=== PATIENT | female | born 1970 | race Two or more races ===

== ENCOUNTER 2024-11-22 07:31 | Outpatient (AMB) | payer OTHER, SELFPAY ==
--- OUTSIDE RECORDS SUMMARY | 2024-11-22 07:33 | XMS_ITS | Clinical Summary ---
Author Organization [employer] [facility] Address [address] [place] [address] 7[address] [place] [address] Care Team Providers Care Air Technician Name Role Phone Unavailable Primary Care Provider Unavailabl e Allergies No known active allergies Medications ibuprofen 600 MG tablet Take 1 tablet (600 mg) by mouth every 6 (six) hours if needed for mild pain for up to 20 doses. 20 tablet Active Additional Information Patient not taking.Reported on 08/17/2024 Active Problems Problem Noted Date Diagnosed Date Gingival bleeding 05/15/2024 Dental calculus 05/15/2024 Normal oral exam 04/23/2024 Severe dental caries 03/01/2024 Fractured dental restorationism with loss of materi al 03/01/2024 Necrosis of dental pulp 03/01/2024 Fracture of enamel and dentin with involvement o f pulp 03/01/2024 Immunizations Immunization Administration Dates Next Due Pfizer Covid-19 Vaccine 12+ 10/03/2023 Social History Tobacco Use Types Packs/Day Years Used Date Smoking Tobacco: Never Smokeless Tobacco: Never Tobacco Cessation:Counseling Given: Not Answered Alcohol Use Standard Drinks/Week Comments Never 0 (1 standard drink = 0.6 oz pur e alcohol) Comments Unknown Sex and Gender Information Value Date Recorded Sex Assigned at Unknown 10/03/2023 9:27 AM EDT Legal Sex Female 9:24 AM EDT Gender Identity Female 10/03/2023 9:27 AM EDT Sexual Orientation Don't know 10/03/2023 9: 27 AM EDT Last Filed Vital Signs Vital Sign Reading Time Taken Comments Blood Pressure 128/98 08/17/2024 10:01 AM EDT Pulse 52 08/17/2024 10:01 AM EDT Temperature - - Respiratory Rate - - Oxygen Saturation - - Inhaled Oxygen Concentration - - Weight - - Height - - Body Mass Index - - Plan of Treatment Upcoming Encounters Date Type Department Care Team (Late st Contact Info) Description 11/27/2024 8:00 AM EDT Office Visit [facility] ADULT D[facility] [address] [place] [address] Ambreen Magallanes [address] [place] [address] Health Maintenance Due Date Last Done Comments CT Colonography 1970 Colonoscopy 1970 Colorectal Cancer Screening 1970 Depression Screening 1970 FIT DNA/Cologuard 1970 FIT 1970 FOBT 1970 HIV Screening 1970 Lipid Panel 1970 SDOH Screening 1970 Sigmoidoscopy 1970 Disability Screening 1970 Alcohol/Substance Use Screening 1982 Hepatitis C Screening 02/28/1988 Pap Smear 1991 Cervical Cancer Screening 02/28/2000 HPV/Cotest 02/28/2000 Mammogram 2010 Pneumococcal Vaccine: 50+ Years (1 of 1 - PCV) 02/28/2020 Zoster Vaccines (1 of 2) 02/28/2020 Hepatitis B Vaccines (2 of 2 - CpG 2-dose series) 10/20/2023 09/22/2023 COVID-19 Vaccine (2 - 2023-2 5 season) 2024 10/03/2023 Dental Oral Exam 09/19/2024 03/21/2024 Dental Prophylaxis 11/13/2024 05/15/2024 Influenza Vaccine (#1) 2025 Dental X-Ray: Bitewings 03/22/2025 03/21/20 24, 03/01/2024 Tobacco Screening 08/17/2025 08/17/2024 Dental X-Ray: Full Mouth 03/22/2027 03/21/2024 DTaP/Tdap/Td Vaccines (2 - T d or Tdap) 09/21/2033 09/22/2023 RSV Patients and Patients Aged 60 years or older (1 - 1-dose 75+ series) 2045 HIB Vaccines Aged Out No longer eligi ble based on patient's age to complete this topic HPV Vaccines Aged Out No longer eligi ble based on patient's age to complete this topic Hepatitis A Vaccines Aged Out No long er eligible based on patient's age to complete this topic IPV Vaccines Aged Out No longer eligi ble based on patient's age to complete this topic Meningococcal B Vaccine Aged Out No l onger eligible based on patient's age to complete this topic Meningococcal Vaccine Aged Out No micaela mirian eligible based on patient's age to complete this topic RSV under 20 months Aged Out No longe r eligible based on patient's age to complete this topic Rotavirus Vaccines Aged Out No longer eligible based on patient's age to complete this topic Procedures Procedure Name Priority Date/Time Associated Diagnosis Comments PROPHYLAXIS - ADULT Routine 05/15/2024 8 :00 AM EST Gingival bleeding Dental calculus INTRAORAL - COMPLETE SERIES OF RADIOGRAPHIC IMAGES Routine 03/21/2024 8:00 AM EST Dental caries Encounter for dental examination COMPREHENSIVE ORAL EVALUATION - NEW OR ESTABLISHED PATIENT Routine 03/21/2024 8:00 AM EST Dental caries Encounter for dental examination from Last 3 Months or Most Recently Relevant to Health Maintenance [place] [address] [place] [address] LIMITED N FULL N FULL DENTAL - HSN PARTIAL (MEDICAID)
[2024-11-22 07:37] VITALS: BP 136/90; BMI 38.0
--- NOTE | 2024-11-22 07:37 | MHC.PC.OV ---
Vital Signs 11/22/24 07:37 Height 5 ft 2 in Weight 208 lb BMI 38.0 BP 136/90 H Blood Pressure Location Lt brachial Position Sitting Intake Visit Reasons: establish care Web Marketing Specialist Required: No Accompanied by: Self / Same As Patient Allergies No Known Allergies Allergy (Verified 11/22/24 07:47) Medication List - Last Reconciled 11/22/24 by Bernice Modi MD atenolol 50 mg PO DAILY Tobacco use date assessed: 11/22/24 Dental Screening Dental Screen Date: 11/22/24 Did you have a dental visit in the last 12 months?: Yes Did you have a dental problem in the last 6 months where you did not have access to dental care?: No Was dental information given to patient?: Patient has dentist HPI HPI Comments History of Present Illness Details The patient is a 54-year-old female presenting for a wellness visit and management of hypertension. The patient has a history of hypertension, for which she is currently taking atenolol 50 mg once daily, typically at night. She was advised to consider taking the medication in the morning for better efficacy. The patient underwent a hysterectomy due to menorrhagia, which was characterized by excessive bleeding. This procedure negates the need for routine Papanicolaou tests. Preventative care measures discussed include scheduling a mammography, as it has been over a year since her last screening. Additionally, a stool test for colon cancer screening was recommended, with instructions provided for home collection and mailing. [facility] Surgical History (Updated 11/22/24 @ 07:54 by Bernice Modi MD) S/P total abdominal hysterectomy History of tooth extraction Family History Mother No problems noted. Father No problems noted. Social History Housing: Apartment Alcohol intake: current Alcohol intake frequency: holidays/special occasions only Alcohol type: wine and other Patient Tobacco Use Status: Never used Tobacco e-Cigarette/Vaping Use: Never Used Second Hand Smoke Exposure: No service: No Current occupational status: employed Current occupational exposures/hazards: No Cognitive needs: No Hearing needs: No Vision needs: No Questionnaire PHQ-9 Over the last 2 weeks, how often have you been bothered by any of the following problems? 1. Little interest or pleasure in doing things: several days 2. Feeling down, depressed, or hopeless: not at all 3. Trouble falling or staying asleep, or sleeping too much: not at all 4. Feeling tired or having little energy: not at all 5. Poor appetite or overeating: not at all 6. Feeling bad about yourself - or that you are a failure or have let yourself or your family down: not at all 7. Trouble concentrating on things, such as reading the newspaper or watching television: not at all 8. Moving or speaking so slowly that other people could have noticed. Or the opposite - being so fidgety or restless that you have been moving around a lot more than usual: not at all 9. Thoughts that you would be better off or of hurting yourself in some way: not at all Total score: 1 Depression Screening Interpretation: Negative Depression Screening Done: Yes 38139 - PHQ-9 Billing: Yes Source: Developed by Drs. Roly Dillard, Lisa Isaac, Shashi Cr and colleagues, with an educational nohemi from [employer]. Thrive Questionnaire Date Thrive assessed: 11/22/24 I am a: Patient What is your living situation today?: I have a steady place to live Within the past 12 months, did the food you bought not last and you didn't have the money to get more?: Never true Within the past 12 months, did you worry whether your food would run out before you got money to buy more?: I choose not to answer this question Do you have trouble paying for medicines?: I choose not to answer this question Do you have trouble getting transportation to medical appointments?: Yes Do you have trouble paying your heating and electricity bill?: No Do you have trouble taking care of your child, family member or friend?: No Do you have trouble with day-to-day activities such as bathing, preparing meals, shopping, managing finances, etc.?: No Are you currently unemployed and looking for a job?: No Are you interested in more education?: I choose not to answer this question Please select the resources that you would like help with: Transportation Currently or been in a relationship where the following occur: No concerns reported THRIVE Score: 1 AUDIT C Alcohol Use Questionnaire (AUDIT-C) 1. How often do you have a drink containing alcohol?: Monthly or less 2. How many drinks containing alcohol do you have on a typical day when you are drinking?: 1 or 2 3. How often do you have six or more drinks on one occasion?: Never Total Score: 1 Score Reviewed/Action Taken: No NIRAV-7 AMB Questionnaire NIRAV-7 Date NIRAV - 7 assessed: 11/22/24 Feeling nervous, anxious, or on edge: 0 = Not at all Not being able to stop or control worryin = Not at all Worrying too much about different things: 0 = Not at all Trouble relaxin = Not at all Being so restless that it is hard to sit still: 0 = Not at all Becoming easily annoyed or irritable: 0 = Not at all Feeling afraid as if something awful might happen: 0 = Not at all Total NIRAV-7 score (0-4 normal; 5-9 mild; 10-14 moderate; 15-21 severe): 0 Source: Developed by Drs. Roly Dillard, Lisa Isaac, Shashi Cr and colleagues, with an educational nohemi from [employer]. NIRAV-7 Assessment Billing NIRAV-7 Assessment Tool: NIRAV-7 Assessment 36884 Review of Systems Const All systems reviewed & are unremarkable except as noted in HPI and below Card Denies chest pain at rest, Denies chest pain with activity, Denies edema, Denies irregular heart rhythm, Denies claudication, Denies dyspnea, Denies dyspnea on exertion, Denies orthopnea, Denies paroxysmal nocturnal dyspnea and Denies slow heart rate Resp Denies cough, Denies dyspnea and Denies dyspnea on exertion GI Denies abdominal pain, Denies change in bowel habits, Denies excessive flatus, Denies nausea and Denies vomiting Denies urinary incontinence, Denies urinary hesitancy and Denies urinary urgency Musc Denies abnormal gait, Denies atrophy, Denies deformity and Denies limited range of motion Skin/Breast Denies bleeding lesions, Denies changing lesions and Denies rash Neuro Denies abnormal gait, Denies behavioral changes and Denies lack of coordination Psych Denies behavioral changes Physical exam (Primary Care) Vital Signs: Last Vital Signs BP 136/90 H 11/22/24 07:37 BMI result Body Mass Index 38.0 Tobacco/Smoking Status: Tobacco use Status Tobacco use date assessed 11/22/24 11/22/24 07:44 Patient Tobacco Use Status Never used Tobacco 11/22/24 07:44 e-Cigarette/Vaping Use Never Used 11/22/24 07:44 PHQ-9: PHQ-9 Score PHQ-9: Total score 1 11/22/24 07:52 Depression Screening Interpretation: Negative Thrive Assessment: Date of Thrive Assessment Date Thrive assessed 11/22/24 11/22/24 07:44 Currently or been in a relationship where the following occur: No concerns reported Resp Effort & Inspection: normal respiratory effort Auscultation: clear to auscultation bilaterally Cardio Jugular venous distension: no JVD Rate: regular rate Rhythm: regular rhythm Heart sounds: S1 normal heart sound present and S2 normal heart sound present Extrem General: Yes full ROM Psych Appearance: grossly normal Coding Level of Care Code New Pt Level 3 (85495) Complex EM visit Add On G2211 Diagnoses Essential hypertension I10 Class 2 obesity with body mass index (BMI) of 38.0 to 38.9 in adult E66.812; Z68.38 Additional Codes NIRAV-7 Assessment Billing - NIRAV-7 Assessment Tool: NIRAV-7 Assessment 93615 ([id number]) PHQ-9 - 17862 - PHQ-9 Billing: Yes ([id number]) Time Spent (min) 19 Assessment & Plan Assessment & Plan (1) Essential hypertension: Code(s): I10 - Essential (primary) hypertension Category: Medical (2) Class 2 obesity with body mass index (BMI) of 38.0 to 38.9 in adult: Code(s): E66.812 - Obesity, class 2; Z68.38 - Body mass index [BMI] 38.0-38.9, adult Category: Medical Plan The patient will continue with atenolol 50 mg daily for hypertension management, with a recommendation to take it in the morning for optimal control. A follow-up blood pressure check is advised to assess the effectiveness of the current regimen. Preventative care includes scheduling a mammography, as it has been over a year since the last screening. A stool test for colon cancer screening will be sent to her home, with instructions for completion and mailing provided. No further Papanicolaou tests are necessary due to her prior hysterectomy for benign reasons. Patient was informed and verbally consented to the use of an ambient scribe for clinic note documentation during this visit. During the visit, I discussed with the patient the importance of taking atenolol in the morning to enhance its effectiveness in managing her hypertension. We also reviewed the need for regular blood pressure monitoring to ensure the medication is working effectively. I emphasized the importance of preventative screenings, including scheduling a mammography and completing the stool test for colon cancer screening. The patient was informed that due to her hysterectomy, routine Papanicolaou tests are not required. Orders: Orders MM tomosynthesis screening BI Today Z12.31 - Encounter for screening mammogram for malignant neoplasm of breast Lipid Panel Today I10 - Essential (primary) hypertension Thyroid Stimulating Hormone Today E66.812 - Obesity, class 2, Z68.38 - Body mass index [BMI] 38.0-38.9, adult Comprehensive [place]. Panel Fast Today I10 - Essential (primary) hypertension Complete Blood Count Auto Diff Today E66.812 - Obesity, class 2, Z68.38 - Body mass index [BMI] 38.0-38.9, adult Referrals Cologuard Test Z12.11 - Encounter for screening for malignant neoplasm of colon, Z12.12 - Encounter for screening for malignant neoplasm of rectum Medications: New atenolol 50 mg PO DAILY 90 days 90 tabs 1RF I10 - Essential (primary) hypertension atenolol 50 mg PO DAILY 90 tabs 1RF 90 days I10 - Essential (primary) hypertension Patient Instructions: - Take atenolol 50 mg in the morning for better blood pressure control. - Schedule a follow-up appointment for blood pressure monitoring. - Arrange for a mammography as soon as possible. - Complete the stool test for colon cancer screening and mail it as instructed.
== END 2024-11-22 08:02 | disposition home or self-care (01) ==
LOC: HO.HMCH 07:32
PROVIDERS: Visit Provider Internal Medicine
DX: I10 Essential (primary) hypertension (principal); E66.812 Obesity, class 2; Z68.38 Body mass index [BMI] 38.0-38.9, adult

== ENCOUNTER → 2024-11-22 07:31 | Outpatient (BNVA) | payer OTHER, SELFPAY | PROVIDERS: Visit Provider Internal Medicine | DX: I10 Essential (primary) hypertension (principal); E66.812 Obesity, class 2; Z68.38 Body mass index [BMI] 38.0-38.9, adult; Z90.710 Acquired absence of both cervix and uterus | CPT/HCPCS: 96127; 99202 ==

== ENCOUNTER → 2024-12-07 08:00 | Outpatient (BNVA) | payer OTHER, SELFPAY | PROVIDERS: PCP Internal Medicine | DX: Z01.30 Encounter for examination of blood pressure without abnormal findings (principal) | CPT/HCPCS: 99211 ==

== ENCOUNTER 2025-01-10 07:30 | Outpatient (REF) | payer OTHER, SELFPAY ==
--- NOTE | ~2025-01-10 | MM_ITS ---
EXAMINATION: MM SCREENING DIGITAL BREAST TOMOSYNTHESIS, BILATERAL CLINICAL INFORMATION: Screening. Asymptomatic. COMPARISON: None. This is a baseline study. TECHNIQUE: Digital breast tomosynthesis is performed in mediolateral oblique and craniocaudal views along with computer-aided detection (CAD). Additional views were taken if needed. FINDINGS: BREAST COMPOSITION: There are scattered areas of fibroglandular density (ACR BI-RADS breast composition Category b). RIGHT BREAST: 2 adjacent asymmetries measuring 1.0 cm and 0.5 cm in the upper outer quadrant posterior depth at approximately 13 to 15 cm from the nipple (MLO 25/101, MLO 17/, CC /). No suspicious calcifications or other abnormalities are seen. LEFT BREAST: No significant masses, suspicious calcifications or other abnormalities are seen. MM/MM tomosynthesis screening BI IMPRESSION: RIGHT BREAST: 2 adjacent asymmetries in the upper outer quadrant posterior depth. LEFT BREAST: Negative, no mammographic evidence of malignancy. Normal interval follow-up is recommended in 12 months. ASSESSMENT: BI-RADS 0 - Incomplete: Needs additional Imaging. RECOMMENDATION: 1. Additional views of the right breast 2. Targeted ultrasound if warranted after review of the additional views. 3. Radiology department staff will contact the patient for additional imaging. FOLLOW-UP: Additional Imaging required This examination should not preclude the clinical evaluation of a suspicious palpable abnormality. This patient's information was entered into a reminder system with a target due date for their next mammogram. Electronically signed by: Mirella Nye MD 01/12/2025 04:17 PM EDT
--- OUTSIDE RECORDS SUMMARY | 2025-01-10 07:33 | XMS_ITS | Clinical Summary ---
Author Organization [employer] [facility] Address [address] [place] [address] Care Team Providers Care Ui Software Engineer Name Role Phone Unavailable Primary Care Provider Unavailabl e Allergies No known active allergies Medications ibuprofen 600 MG tablet Take 1 tablet (600 mg) by mouth every 6 (six) hours if needed for mild pain for up to 20 doses. 20 tablet Active Additional Information Patient not taking.Reported on 08/17/2024 atenolol (Tenormin) 50 MG tablet Take 50 mg by mouth Once per day. Active Active Problems Problem Noted Date Diagnosed Date Teeth missing 11/27/2024 Gingival bleeding 05/15/2024 Dental calculus 05/15/2024 Normal oral exam 04/23/2024 Dental caries 03/01/2024 Fractured dental methodist with loss of materi al 03/01/2024 Necrosis of dental pulp 03/01/2024 Fracture of enamel and dentin with involvement o f pulp 03/01/2024 Encounters Date Type Department Care Team Description 11/27/2024 8:00 AM EDT Office Visit [facility] ADULT DENTAL [address] [place] [address] Ambreen Magallanes Dental calculus (Primary Dx); Teeth missing; Dental caries from Last 3 Months Immunizations Immunization Administration Dates Next Due Pfizer Covid-19 Vaccine 12+ 10/03/2023 Social History Tobacco Use Types Packs/Day Years Used Date Smoking Tobacco: Never Passive Smoke Exposure: Never Smokeless Tobacco: Never Tobacco Cessation:Counseling Given: [...] Sign Reading Time Taken Comments Blood Pressure 128/76 11/27/2024 8:04 AM EDT Pulse 52 08/17/2024 10:01 AM EDT Temperature - - Respiratory Rate - - Oxygen Saturation - - Inhaled Oxygen Concentration - - Weight - - Height - - Body Mass Index - - Plan of Treatment Upcoming Encounters Date Type Department Care Team (Late st Contact Info) Description 01/23/2025 9:30 AM EDT Office Visit [facility] D[facility] [address] [place] [address] Paloma-Laurie Mendez, DDS [address] [place] [address] 06/11/2025 8:00 AM EST Office Visit [facility]ULT DENT[facility] [address] [place] [address] Elpidio, Ambreen [address] [place] [address] Health Maintenance Due Date Last Done Comments [...] (2 - 2023-2 5 season) 2024 10/03/2023 Influenza Vaccine (#1) 2025 Dental Oral Exam 05/31/2025 11/27/2024, 03/21/2024 Dental Prophylaxis 05/31/2025 11/27/2024, 05/15/2024 Tobacco Screening 11/27/2025 11/27/2024 Dental X-Ray: Bitewings 11/28/2025 11/28/19 25, 03/21/2024, 03/01/2024 Dental X-Ray: Full Mouth 03/22/2027 03/21/2024 DTaP/Tdap/Td [...] Procedure Name Priority Date/Time Associated Diagnosis Comments PERIODIC ORAL EVALUATION - ESTABLISHED PATIENT Routine 11/27/2024 8:00 AM EDT CASE PRESENTATION, DETAILED AND EXTENSIVE TREATMENT PLANNING Routine 11/27/2024 8:00 AM EDT Dental calculus Teeth missing ORAL HYGIENE INSTRUCTIONS Routine 11/27/2024 8:00 AM EDT Dental calculus Teeth missing PROPHYLAXIS - ADULT Routine 11/27/2024 8 :00 AM EDT Dental calculus 24,25 INTRAORAL - PERIAPICAL EACH ADDITIONAL RADIOGRAPHIC IMAGE Routine 11/27/2024 8:00 AM EDT Dental calculus Teeth missing 8,9 INTRAORAL - PERIAPICAL FIRST RADIOGRAPHIC IMAGE Routine 11/27/2024 8:00 AM EDT Dental calculus Teeth missing BITEWINGS - 4 RADIOGRAPHIC IMAGES Routine 11/27/2024 8:00 AM EDT Dental calculus Teeth missing 2 O COMPOSITE FILLING Routine 11/27/2024 12:00 AM EDT 29 MO COMPOSITE FILLING Routine 11/28/19 25 12:00 AM EDT 28 DO COMPOSITE FILLING Routine 11/28/19 25 12:00 AM EDT 21 O COMPOSITE FILLING Routine 5 12:00 AM EDT 20 O COMPOSITE FILLING Routine 5 12:00 AM EDT 19 MO COMPOSITE FILLING Routine 11/28/19 25 12:00 AM EDT 18 O COMPOSITE FILLING Routine 5 12:00 AM EDT INTRAORAL - COMPLETE SERIES OF RADIOGRAPHIC IMAGES Routine 03/21/2024 8:00 AM EST Dental caries Encounter for dental examination from Last 3 Months or Most Recently Relevant to Health Maintenance [place] [address] [place] [address] HSN FULL N FULL DENTAL - HSN PARTIAL (MEDICAID)
== END 2025-01-10 07:31 | disposition home or self-care (01) ==
LOC: HO.MAMMO 07:30
PROVIDERS: PCP Internal Medicine; Visit Provider Internal Medicine
DX: Z12.31 Encounter for screening mammogram for malignant neoplasm of breast (principal)
CPT/HCPCS: 77063; 77067

== ENCOUNTER → 2025-01-10 09:15 | Outpatient (BNV) | payer OTHER, SELFPAY | PROVIDERS: PCP Internal Medicine; Visit Provider Radiology Body Imaging | DX: Z12.31 Encounter for screening mammogram for malignant neoplasm of breast (principal) | CPT/HCPCS: 77063; 77067 ==

== ENCOUNTER 2025-03-26 09:34 | Outpatient (REF) | payer OTHER, SELFPAY ==
[2025-03-26 09:51] LABS: MANUAL DIFF FLAG NO
[2025-03-26 10:01] LABS: Hematocrit 43.7 % (37.0-47.0); Hemoglobin 14.7 g/dl (12.0-16.0); Imm Gran Abs Auto 0.01 X10*3/uL (0.00-0.03); Imm Gran Pct Auto 0.2 % (0.0-0.4); Lymphocytes Absolute Auto 2.4 X10*3/uL (1.2-4.9); Mean Corpuscular HGB Conc 33.6 g/dl (31.0-35.0); Mean Corpuscular Hemoglobin 31.4 pg (27.0-33.0); Mean Corpuscular Volume 93.4 fL (80.0-98.0); NRBC Abs Auto 0.000 X10*3/uL (0.0-0.012); NRBC Pct Auto 0.0 /100WBC (0.0-0.2); Platelet Count 194 X10*3/uL (160-400); Red Blood Count 4.68 X10*6/uL (4.20-5.50); White Blood Count 4.6 X10*3/uL (4.8-10.8)
--- OUTSIDE RECORDS SUMMARY | 2025-03-26 10:36 | XMS_ITS | Clinical Summary ---
Author Organization [employer] [facility] Address [address] [place] [address] Care Team Providers Care Warranty Administrator Name Role Phone Unavailable Primary Care Provider [...] exam 04/23/2024 Dental caries 03/01/2024 Fractured dental orthodoxy with loss of materi al 03/01/2024 Necrosis of dental pulp 03/01/2024 Fracture of enamel and dentin with involvement o f pulp 03/01/2024 Encounters Date Type Department Care Team Description 01/23/2025 9:30 AM EDT Office Visit [facility] ADULT DENTAL [address] [place] [address] Laurie Ramos DDS Fractured dental orthodoxy with loss of material (Primary Dx); Abrasion of teeth, localized; Tooth abrasion from Last 3 Months Immunizations Immunization Administration [...] Care Team (Late st Contact Info) Description 06/11/2025 8:00 AM EST Office Visit [facility] ADULT [facility] [address] [place], [place] [phone] Elpidio Ambreen [address] [place] [address] Health Maintenance Due Date Last Done Comments [...] series) 10/20/2023 09/22/2023 COVID-19 Vaccine (2 - 2024-2 6 season) 2025 10/03/2023 Influenza Vaccine (#1) 2025 Dental Oral Exam 05/31/2025 11/27/2024, 03/21/2024 Dental Prophylaxis 05/31/2025 11/27/2024, 05/15/2024 Dental X-Ray: Bitewings 11/28/2025 11/28/19 25, 03/21/2024, 03/01/2024 Tobacco Screening 01/23/2026 01/23/2025 Dental X-Ray: Full Mouth 03/22/2027 03/21/2024 DTaP/Tdap/Td [...] Procedure Name Priority Date/Time Associated Diagnosis Comments CASE PRESENTATION, DETAILED AND EXTENSIVE TREATMENT PLANNING Routine 01/23/2025 9:30 AM EDT Fractured dental orthodoxy with loss of material Abrasion of teeth, localized INTRAORAL - PERIAPICAL FIRST RADIOGRAPHIC IMAGE Routine 01/23/2025 9:30 AM EDT Fractured dental orthodoxy with loss of material Abrasion of teeth, localized CONSULTATION - DIAGNOSTIC SERVICE PROVIDED BY DENTIST OR PHYSICIAN OTHER THAN REQUESTING DENTIST OR PHYSICIAN Routine 01/23/2025 9:30 AM EDT Fractured dental orthodoxy with loss of material Abrasion of teeth, localized PROPHYLAXIS - ADULT Routine 11/27/2024 8 :00 AM EDT Dental calculus BITEWINGS - 4 RADIOGRAPHIC IMAGES Routine 11/27/2024 8:00 AM EDT Dental calculus Teeth missing PERIODIC ORAL EVALUATION - ESTABLISHED PATIENT Routine 11/27/2024 8:00 AM EDT INTRAORAL - COMPLETE SERIES OF RADIOGRAPHIC IMAGES Routine 03/21/2024 8:00 AM EST Dental caries Encounter for dental examination from Last 3 Months or Most Recently Relevant to Health Maintenance Insurance [facility] HSN FULL HSN FULL DENTAL - HSN PARTIAL (MEDICAID)
[2025-03-26 10:57] LABS: Alanine Aminotransferase 30 U/L (0-31); Albumin Level 4.3 g/dL (3.5-5.0); Alkaline Phosphatase 70 U/L (39-117); Anion Gap 11 (12-20); Aspartate Amino Transferase 33 U/L (5-31); Blood Urea Nitrogen 11 mg/dL (9-16); Calcium 8.9 mg/dL (8.4-10.2); Carbon Dioxide 27 mmol/L (22-29); Chloride 107 mmol/L (96-108); Cholesterol 190 mg/dL (<200); Estimated Glomerular Filt Rate > 60; HDL Cholesterol 59 mg/dL (>40); Potassium 4.5 mmol/L (3.3-5.1); Sodium 140 mmol/L (135-145); Total Protein 8.0 g/dL (6.5-8.0); Triglycerides 82 mg/dL (<150)
[2025-03-26 11:23] LABS: Thyroid Stimulating Hormone 2.25 uIU/mL (0.32-4.0)
== END 2025-03-26 09:35 | disposition home or self-care (01) ==
LOC: HO.LAB 09:34
PROVIDERS: PCP Internal Medicine; Visit Provider Internal Medicine
DX: E66.812 Obesity, class 2 (principal); I10 Essential (primary) hypertension; Z68.38 Body mass index [BMI] 38.0-38.9, adult
CPT/HCPCS: 36415; 80053; 80061; 84443; 85025

== ENCOUNTER 2025-04-03 07:24 | Outpatient (AMB) | payer OTHER, SELFPAY ==
[2025-04-03 07:39] VITALS: BP 134/82; PULSE 74; O2SAT 98; BMI 38.6
--- NOTE | 2025-04-03 07:39 | MHC.PC.OV ---
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 Cologuard done this year and next Cologuard should be 2027. Mammogram done this year. No need for Pap smear due to hysterectomy. She is obese with a BMI of 38.6 and was advised to do diet and exercise. Recent lab work showed a white blood cell count of 4.6, which is slightly below the normal threshold of 4.8. The patient was informed that this finding is not significant. Her immunizations are up to date, having received a tetanus vaccine last year, which is due in 2033, and a flu vaccine this year. [facility] Surgical History S/P total abdominal hysterectomy History of tooth extraction Family History Mother No problems noted. Father No problems noted. Social History Housing: Apartment Alcohol intake: current Alcohol intake frequency: holidays/special occasions only Alcohol type: wine and other Patient Tobacco Use Status: Never used Tobacco Tobacco use type: Cigarette e-Cigarette/Vaping Use: Never Used Second Hand Smoke Exposure: No service: No Current occupational status: employed Current occupational exposures/hazards: No Cognitive needs: No Hearing needs: No Vision needs: No Questionnaire PHQ-9 Over the last 2 weeks, how often have you been bothered by any of the following problems? 1. Little interest or pleasure in doing things: several days 2. Feeling down, depressed, or hopeless: not at all 3. Trouble falling or staying asleep, or sleeping too much: not at all 4. Feeling tired or having little energy: not at all 5. Poor appetite or overeating: not at all 6. Feeling bad about yourself - or that you are a failure or have let yourself or your family down: not at all 7. Trouble concentrating on things, such as reading the newspaper or watching television: not at all 8. Moving or speaking so slowly that other people could have noticed. Or the opposite - being so fidgety or restless that you have been moving around a lot more than usual: not at all 9. Thoughts that you would be better off or of hurting yourself in some way: not at all Total score: 1 Depression Screening Interpretation: Negative Depression Screening Done: Yes 25635 - PHQ-9 Billing: Yes Source: Developed by Drs. Roly Dillard, Lisa Isaac, Shashi Cr and colleagues, with an educational nohemi from [employer]. Thrive Questionnaire Date Thrive assessed: 11/22/24 I am a: Patient What is your living situation today?: I have a steady place to live Within the past 12 months, did the food you bought not last and you didn't have the money to get more?: Never true Within the past 12 months, did you worry whether your food would run out before you got money to buy more?: I choose not to answer this question Do you have trouble paying for medicines?: I choose not to answer this question Do you have trouble getting transportation to medical appointments?: Yes Do you have trouble paying your heating and electricity bill?: No Do you have trouble taking care of your child, family member or friend?: No Do you have trouble with day-to-day activities such as bathing, preparing meals, shopping, managing finances, etc.?: No Are you currently unemployed and looking for a job?: No Are you interested in more education?: I choose not to answer this question Please select the resources that you would like help with: Transportation Currently or been in a relationship where the following occur: No concerns reported THRIVE Score: 1 AUDIT C Alcohol Use Questionnaire (AUDIT-C) 1. How often do you have a drink containing alcohol?: Monthly or less 2. How many drinks containing alcohol do you have on a typical day when you are drinking?: 1 or 2 3. How often do you have six or more drinks on one occasion?: Never Total Score: 1 Score Reviewed/Action Taken: No NIRAV-7 AMB Questionnaire NIRAV-7 Date NIRAV - 7 assessed: 11/22/24 Source: Developed by Drs. Roly Dillard, Lisa Isaac, Shashi Cr and colleagues, with an educational nohemi from [employer]. Review of Systems Const All systems reviewed & are unremarkable except as noted in HPI and below Card Denies chest pain at rest, Denies chest pain with activity, Denies edema, Denies irregular heart rhythm, Denies claudication, Denies dyspnea, Denies dyspnea on exertion, Denies orthopnea, Denies paroxysmal nocturnal dyspnea and Denies slow heart rate Resp Denies cough, Denies dyspnea and Denies dyspnea on exertion GI Denies abdominal pain, Denies change in bowel habits, Denies excessive flatus, Denies nausea and Denies vomiting Physical exam (Primary Care) Vital Signs: Last Vital Signs Pulse 74 04/03/25 07:39 BP 134/82 04/03/25 07:39 Pulse Ox 98 04/03/25 07:39 Oxygen Delivery Method Room Air 04/03/25 07:39 BMI result Body Mass Index 38.6 BMI Assessment/Plan discussion: High BMI High, discussed plan: lifestyle, weight reduction, dietary and physical activity Tobacco/Smoking Status: Tobacco use Status Tobacco use date assessed 11/22/24 04/03/25 07:44 Patient Tobacco Use Status Never used Tobacco 04/03/25 07:44 Tobacco use type Cigarette 04/03/25 07:44 e-Cigarette/Vaping Use Never Used 04/03/25 07:44 PHQ-9: PHQ-9 Score PHQ-9: Total score 1 04/03/25 07:52 Depression Screening Interpretation: Negative Thrive Assessment: Date of Thrive Assessment Date Thrive assessed 11/22/24 04/03/25 07:44 Currently or been in a relationship where the following occur: No concerns reported HENMT Head: Yes normal to inspection, Yes normocephalic and Yes atraumatic Ears: external ears normal Eyes General: appearance normal, both eyes and all related structures Eyelids: Yes eyelids normal Conjunctivae: conjunctivae normal Neck Neck: Yes normal visual inspection and Yes supple Resp Effort & Inspection: normal respiratory effort Auscultation: clear to auscultation bilaterally Cardio Jugular venous distension: no JVD Rate: regular rate Rhythm: regular rhythm Heart sounds: S1 normal heart sound present and S2 normal heart sound present GI Inspection: Yes normal to inspection Palpation (GI): Soft to palpation and nontender Auscultation: normal bowel sounds Skin General skin exam: no rashes or lesions noted Neuro General: no focal motor deficits Extrem General: Yes full ROM Psych Appearance: grossly normal Coding Level of Care Code Est Pt Prev Care 40-64y(85652) Diagnoses Physical exam Z00.00 Additional Codes PHQ-9 - 09674 - PHQ-9 Billing: Yes ([id number]) Time Spent (min) 30 Assessment & Plan Assessment & Plan (1) Physical exam: Code(s): Z00.00 - Encounter for general adult medical examination without abnormal findings Category: Medical Plan Plan 1. Encounter for general adult medical examination without abnormal findings Z00.00 Repeat in a year. Cotinue yearly mammogram.
--- OUTSIDE RECORDS SUMMARY | 2025-04-03 15:04 | XMS_ITS | Clinical Summary ---
Author Organization [employer] [facility] Address [address] [place] [address] Care Team Providers Care Hand Inspector Name Role Phone Unavailable Primary Care Provider [...] exam 04/23/2024 Dental caries 03/01/2024 Fractured dental synagogue with loss of materi al 03/01/2024 Necrosis of dental pulp 03/01/2024 Fracture of enamel and dentin with involvement o f pulp 03/01/2024 Encounters Date Type Department Care Team Description 01/23/2025 9:30 AM EDT Office Visit [facility] [address] [place] [address] Laurie Ramos DDS Fractured dental synagogue with loss of material (Primary Dx); Abrasion [...] Description 06/11/2025 8:00 AM EST Office Visit [facility] [address] [place], [place] [phone] Elpidio Ambreen [address] [place] [address] Health Maintenance Due Date Last Done Comments [...] Routine 01/23/2025 9:30 AM EDT Fractured dental synagogue with loss of material Abrasion of teeth, localized INTRAORAL - PERIAPICAL FIRST RADIOGRAPHIC IMAGE Routine 01/23/2025 9:30 AM EDT Fractured dental synagogue with loss of material Abrasion of teeth, localized CONSULTATION - DIAGNOSTIC SERVICE PROVIDED BY DENTIST OR PHYSICIAN OTHER THAN REQUESTING DENTIST OR PHYSICIAN Routine 01/23/2025 9:30 AM EDT Fractured dental synagogue with loss of material Abrasion of teeth, [...] Most Recently Relevant to Health Maintenance Insurance [facility] LIMITED HSN FULL HSN FULL DENTAL - HSN PARTIAL (MEDICAID)
== END 2025-04-03 08:01 | disposition home or self-care (01) ==
LOC: HO.HMCH 07:25
PROVIDERS: PCP Internal Medicine; Visit Provider Internal Medicine
DX: Z00.00 Encounter for general adult medical examination without abnormal findings (principal)

== ENCOUNTER → 2025-04-03 07:24 | Outpatient (BNVA) | payer OTHER, SELFPAY | PROVIDERS: PCP Internal Medicine; Visit Provider Internal Medicine | DX: Z00.00 Encounter for general adult medical examination without abnormal findings (principal) | CPT/HCPCS: 96127; 99396 ==

== ENCOUNTER 2025-04-15 14:02 | Outpatient (REF) | payer OTHER, SELFPAY ==
--- NOTE | ~2025-04-15 | US_ITS ---
EXAMINATION(S): 1. MM DIAGNOSTIC DIGITAL BREAST TOMOSYNTHESIS, RIGHT 2. TARGETED ULTRASOUND OF THE RIGHT BREAST CLINICAL INFORMATION: Callback from baseline screening for two adjacent focal asymmetries in the upper outer quadrant COMPARISON: January 10, 2025 TECHNIQUE: Digital breast tomosynthesis is performed in full field ML 90 degrees along with computer-aided detection (CAD). Synthesized 2D images are generated from the tomosynthesis. Spot compression tomosynthesis were obtained. FINDINGS: BREAST COMPOSITION: There are scattered areas of fibroglandular density. RIGHT BREAST: Today's images redemonstrate single focal asymmetry or two adjacent focal asymmetries in the upper outer quadrant, with each component measuring 0.6 cm and 0.4 cm, decreased from prior measurements of 1.0 cm and 0.5 cm in December 2024, located at approximately 13 cm from the nipple. They are best seen on the ML 90 degrees , spot MLO 32/105 and spot CC 35/80. Targeted ultrasound of the right breast was performed at the location of the mammographic finding. The survey throughout the upper outer quadrant showed 1.3 x 1.0 x 0.5 cm benign-appearing lymph node at 10 o'clock position at 15 cm from the nipple. It is unclear if this benign sonographic finding correlates with the mammographic finding. US/US Breast RT Limited Mamm Only IMPRESSION: RIGHT BREAST: Decreasing single focal asymmetry or two adjacent focal asymmetries in the upper outer quadrant at about 13 cm from the nipple. Unclear if correlates with the single benign-appearing lymph node identified at 10 o'clock position at 15 cm from the nipple. Probably benign. A short-term follow-up is recommended as bilateral diagnostic mammogram in December 2025. ASSESSMENT: BI-RADS: Category 3: Probably benign RECOMMENDATION: 6 Month F/U Results were provided to the patient at time of visit by the technologist. This patient's information was entered into a reminder system with a target due date for their next mammogram. Electronically signed by: Mirella Nye MD 04/15/2025 03:03 PM [facility]
--- OUTSIDE RECORDS SUMMARY | 2025-04-15 17:28 | XMS_ITS | Clinical Summary ---
Author Organization [employer] [facility] Address [address] [place] [address] Care Team Providers Care Hot Stamp Operator Name Role Phone Unavailable Primary Care Provider [...] exam 04/23/2024 Dental caries 03/01/2024 Fractured dental mosque with loss of materi al 03/01/2024 Necrosis of dental pulp 03/01/2024 Fracture of enamel and dentin with involvement o f pulp 03/01/2024 Encounters Date Type Department Care Team Description 01/23/2025 9:30 AM EDT Office Visit [facility] [address] [place] [address] Laurie Ramos DDS Fractured dental mosque with loss of material (Primary Dx); Abrasion [...] Description 06/11/2025 8:00 AM EST Office Visit [facility] [address] [place], [place] [phone] Elpidio Ambreen [address] [place] [address] Health Maintenance Due Date Last Done Comments [...] Routine 01/23/2025 9:30 AM EDT Fractured dental mosque with loss of material Abrasion of teeth, localized INTRAORAL - PERIAPICAL FIRST RADIOGRAPHIC IMAGE Routine 01/23/2025 9:30 AM EDT Fractured dental mosque with loss of material Abrasion of teeth, localized CONSULTATION - DIAGNOSTIC SERVICE PROVIDED BY DENTIST OR PHYSICIAN OTHER THAN REQUESTING DENTIST OR PHYSICIAN Routine 01/23/2025 9:30 AM EDT Fractured dental mosque with loss of material Abrasion of teeth, [...] Most Recently Relevant to Health Maintenance Insurance [facility] LIMITED HSN FULL HSN FULL DENTAL - HSN PARTIAL (MEDICAID)
== END 2025-04-15 14:03 | disposition home or self-care (01) ==
LOC: HO.MAMMO 14:02
PROVIDERS: PCP Internal Medicine; Visit Provider Internal Medicine
DX: N64.89 Other specified disorders of breast (principal)
CPT/HCPCS: 76642; 77061; 77065

== ENCOUNTER → 2025-04-15 14:05 | Outpatient (BNV) | payer OTHER, SELFPAY | PROVIDERS: PCP Internal Medicine; Visit Provider Radiology Body Imaging | DX: R92.8 Other abnormal and inconclusive findings on diagnostic imaging of breast (principal) | CPT/HCPCS: 76642; 77061; 77065 ==